=== PATIENT | female | born 1970 | race Caucasian/White ===

== ENCOUNTER 2023-04-08 12:25 | Emergency (ER) | payer OTHER ==
[2023-04-08] VITALS (10 sets, daily range): BP systolic 94–116; BP diastolic 53–73
[~2023-04-08] VITALS: Ht 162.6 cm; Wt 48.4 kg
[2023-04-08 13:02] LABS: BASO% 0.7 % (0-3); EOS% 0.9 % (0-8); HEMATOCRIT 46.2 % (37.0-47.0); IMMATURE GRANULOCYTES 0.1 % (0.0-5.0); MEAN CORPUSCULAR HGB 29.9 pG CALC (26.0-32.0); MEAN CORPUSCULAR HGB CONC 32.5 g/dL CAL (32.0-36.0); MONO% 6.4 % (2-13); NEUT# 5.19 thou/uL (2.00-7.15); NEUT% 59.9 % (42-76); RED BLOOD COUNT 5.02 mill/uL (4.20-5.60); RED CELL DISTRI WIDTH 12.7 % (11.5-15.5)
[2023-04-08 13:15] LABS: ALBUMIN 4.7 g/dL (3.2-5.0); ALKALINE PHOSPHATASE 57 u/l (38-126); ANION GAP 12 (6-22 (CALC)); BILIRUBIN, TOTAL 1.1 mg/dL (0.02-1.3); BUN 12 mg/dL (7-17); BUN/CREATININE RATIO 15 (12-20 (CALC)); CARBON DIOXIDE 31 mmol/l (22-30); CHLORIDE 103 mmol/l (95-108); CREATININE 0.8 mg/dL (0.5-1.0); GFR FOR AFR.AMER. > 60 ML/MIN (>=60 (CALC)); GFR OTHER RACES > 60 ML/MIN (>=60 (CALC)); POTASSIUM 4.8 mmol/l (3.5-5.1); SGOT/AST 36 u/l (14-36); SODIUM 141 mmol/l (137-146); TOTAL PROTEIN 8.3 g/dL (6.3-8.2)
[2023-04-08] MEDS ORDERED: LEVOTHYROXIN100 MC1 PO (13:30)
[2023-04-08] MEDS ORDERED: PROTONIX40 MG PO (13:31)
[2023-04-08] MEDS ORDERED: SIMVASTATIN10 MG PO (13:31)
[2023-04-08 13:45] LABS: TSH, 3RD GENERATION 4.16 uIU/mL (0.47 - 4.68)
[2023-04-08 14:17] LABS: URINE BILIRUBIN - DIPSTICK NEGATIVE (NEGATIVE); URINE BLOOD DIPSTICK MODERATE (NEGATIVE); URINE COLOR YELLOW; URINE GLUCOSE - DIPSTICK NEGATIVE (NEGATIVE); URINE KETONE NEGATIVE (NEGATIVE); URINE LEUK ESTERASE TRACE (NEGATIVE); URINE PROTEIN - DIPSTICK NEGATIVE (NEG-TRACE); URINE SPECIFIC GRAVITY 1.015; URINE UROBILINOGEN - DIPSTICK 0.2 E.U./dL (0.2)
[2023-04-08 14:19] LABS: URINE NITRITE - DIPSTICK NEGATIVE (Negative)
[2023-04-08 14:27] LABS: URINE SQUAMOUS EPITHELIAL CELL FEW EPI/hpf (0-FEW); URINE WBC 0-2 WBC/hpf (0-5)
[2023-04-08] MEDS ORDERED: ZOFRAN4 MG/TAB PO (14:39)
== END 2023-04-08 16:25 | disposition home or self-care (01) | DRG 948 ==
LOC: ED 12:25
PROVIDERS: Family Medicine
DX: R53.83 Other fatigue (principal); E03.9 Hypothyroidism, unspecified; Z86.16 Personal history of COVID-19; Z20.822 Contact with and (suspected) exposure to COVID-19